=== PATIENT | male | born 1990 | race Hispanic/Latino ===

== ENCOUNTER 2022-04-20 21:36 | Emergency (ER) | payer OTHER ==
[~2022-04-20] VITALS: Ht 167.6 cm; Wt 90.7 kg
[2022-04-20] MEDS ORDERED: IBUPROFEN 600 MG TAB PO STA (21:55)
[2022-04-20] MEDS ORDERED: IBUPROFEN 600 MG TAB ONE (22:05)
== END 2022-04-20 21:55 | disposition home or self-care (01) ==
LOC: ER 21:40
DX: H60.93 Unspecified otitis externa, bilateral (principal)
CPT/HCPCS: 99282

== ENCOUNTER 2022-08-02 20:10 | Emergency (ER) | payer SELFPAY ==
[~2022-08-02] VITALS: Ht 167.6 cm; Wt 90.7 kg
[2022-08-02] MEDS ORDERED: ONDANSETRON HCL 4 MG ORAL DISINTEGRATING TAB PO ONE (20:30)
[2022-08-02] MEDS ORDERED: ACETAMINOPHEN 325 MG TAB PO ONE (20:30)
[2022-08-02] MEDS ORDERED: TAMIFLU75 MG PO (22:30)
[2022-08-02] MEDS ORDERED: ONDANSETRON ODT4 MG PO (22:30)
== END 2022-08-02 22:40 | disposition home or self-care (01) ==
LOC: ER 20:32
DX: R50.9 Fever, unspecified (principal); J10.1 Influenza due to other identified influenza virus with other respiratory manifestations; Z20.822 Contact with and (suspected) exposure to COVID-19; F17.210 Nicotine dependence, cigarettes, uncomplicated
CPT/HCPCS: 99283; Q0162; U0002